=== PATIENT | female | born 1955 | race Caucasian/White ===

== ENCOUNTER 2016-08-21 07:28 | Outpatient (CLI) | payer BC ==
[2016-08-21 08:40] LABS: eGFR (African) > 60; eGFR (Non-African) > 60
== END 2016-08-21 07:30 ==
LOC: LAB 07:28
PROVIDERS: ATTEND Internal Medicine
DX: E11.65 Type 2 diabetes mellitus with hyperglycemia (principal)
CPT/HCPCS: 36415; 80053; 83036

== ENCOUNTER 2017-02-15 07:59 | Outpatient (CLI) | payer BC ==
[2017-02-15 08:21] LABS: MEAN CORPUSCULAR HEMOGLOBIN 26.1 pg (28.0-34.0); MEAN CORPUSCULAR VOLUME 83.6 fl (80.0-100.0)
[2017-02-15 08:42] LABS: eGFR (African) > 60; eGFR (Non-African) > 60
== END 2017-02-15 08:00 ==
LOC: LAB 07:59
PROVIDERS: ATTEND Internal Medicine
DX: E03.9 Hypothyroidism, unspecified (principal); E11.65 Type 2 diabetes mellitus with hyperglycemia; Z00.00 Encounter for general adult medical examination without abnormal findings
CPT/HCPCS: 36415; 80053; 80061; 83036; 84443; 85027; 86803

== ENCOUNTER 2019-03-28 08:29 | Outpatient (CLI) | payer BC ==
--- NOTE | 2019-03-28 09:40 | Diagnostic Imaging Report ---
NANCI CHOWDHURY (RISHI) - OP [facility] [id number] [facility] [address] [id number] Report Submission Date: Mar 28, 2019 9:00:07 AM CDT Patient Study Name: ANNI MURILLO Date: Mar 28, 2019 8:26:36 AM CDT Modality Type: DX Gender: F Description: BILAT FEET 3 VIEW : 53 Institution: [facility] Physician: NANCI CHOWDHURY (RISHI) - OP Exam: Bilateral feet. History: Previous injuries. AP, lateral and oblique view of both feet are submitted. An orthopedic screw in the medial malleolus of the left ankle are noted. Orthopedic plate and screw device in position at the right ankle internally fixes are distal fibular fracture and fuses the distal tibial fibular articulation. Diffuse osteopenia is noted. Acute fracture through the head of the Right 5th metatarsal is noted. An old fracture of the left 5th metatarsal is noted. Diffuse osteopenia is noted. Soft tissue swelling about the foot is noted. Impression: Status post ORIF ankle fractures. Acute fracture of the head of the 5th metatarsal. Old fracture of the left 5th metatarsal. Diffuse osteopenia. Electronically signed on Mar 28, 2019 9:00:07 AM CDT by: Akash WEBSTER
== END 2019-03-28 09:05 ==
LOC: RAD 08:29
PROVIDERS: ATTEND Nurse Practitioner Family
DX: M79.672 Pain in left foot (principal); M79.671 Pain in right foot; W19.XXXA Unspecified fall, initial encounter; Y99.8 Other external cause status